=== PATIENT | male | born 1955 | race Caucasian/White ===

== ENCOUNTER 2023-10-13 05:50 | Day surgery (SDC) | payer OTHER ==
[2023-10-13 05:57] VITALS: BMI 28.1
[2023-10-13 07:18] LABS: BASO % 1.6 % (0-2.0); EOS % 5.9 % (0-4.5); HEMATOCRIT 34.5 % (35.4-49); HEMOGLOBIN 11.8 GM/dL (11.7-16.9); LYMPH % 16.4 % (8-40); MCH 32.3 pg (25.7-33.7); MCHC 34.2 g/dl (32.0-35.9); MEAN CELL VOLUME 94.6 fl (80-96); MEAN PLT VOLUME 9.6 fl (7.5-11.1); MONO % 9.8 % (3.8-10.2); NEUT % 66.3 % (42.8-82.8); PLATELET COUNT 266 10^3/uL (134-434); RBC 3.64 M/mm3 (4.00-5.60); RDW 15.8 % (11.9-15.9); WHITE BLOOD COUNT 4.9 K/mm3 (4.0-10.0)
[2023-10-13 07:48] LABS: CHLORIDE 107 mmol/L (98-107); SODIUM 135 mmol/L (136-145)
[2023-10-13 07:50] LABS: CALCIUM 8.5 mg/dL (8.5-10.1)
[2023-10-13 07:51] LABS: ALBUMIN 2.6 g/dl (3.4-5.0); BLOOD UREA NITROGEN 18.7 mg/dL (7-18); CO2 23 mmol/L (21-32); GLUCOSE,RANDOM 91 mg/dL (74-106); MAGNESIUM 2.1 mg/dL (1.8-2.4)
[2023-10-13 07:54] LABS: CREATININE 1.4 mg/dL (0.55-1.3); SGOT/AST 115 U/L (15-37); SGPT/ALT 50 U/L (13-61)
[2023-10-13 07:55] LABS: BILIRUBIN,TOTAL 2.8 mg/dL (0.2-1); TOT PROT 6.2 g/dl (6.4-8.2)
[2023-10-13 07:56] LABS: ALK PHOS 338 U/L (45-117)
[2023-10-13 07:59] LABS: ANION GAP 5 mmol/L (4-13); POTASSIUM 6.8 mmol/L (3.5-5.1)
[2023-10-13 09:05] LABS: INR 1.43 (0.83-1.09)
[2023-10-13 09:13] LABS: POTASSIUM 4.7 mmol/L (3.5-5.1)
[2023-10-13 09:15] LABS: CALCIUM 8.8 mg/dL (8.5-10.1)
[2023-10-13 09:16] LABS: ALBUMIN 2.6 g/dl (3.4-5.0); BLOOD UREA NITROGEN 17.6 mg/dL (7-18)
[2023-10-13 09:19] LABS: CREATININE 1.3 mg/dL (0.55-1.3)
[2023-10-13 09:20] LABS: BILIRUBIN,TOTAL 2.6 mg/dL (0.2-1)
[2023-10-13] MEDS: ALBUMIN HUMAN 25% 12.5 GM/50 ML VIAL IV SCH (13:10)
[2023-10-13 17:09] LABS: BF WBC & OTHER NUCLEATED CELLS 102 /mm3
[2023-10-13 17:40] LABS: BODY FLUID MACROPHAGES 2 %; BODY FLUID MESOTHELIAL 3 %; BODY FLUID MONOCYTE 40 %
[2023-10-13] MEDS: SACUBITRIL/VALSARTAN 49 MG-51 MG TABLET PO SCH (22:22)
[2023-10-14 09:21] LABS: HEMATOCRIT 31.8 % (35.4-49); HEMOGLOBIN 10.9 GM/dL (11.7-16.9); MCH 32.4 pg (25.7-33.7); MCHC 34.1 g/dl (32.0-35.9); MEAN PLT VOLUME 8.3 fl (7.5-11.1); PLATELET COUNT 173 10^3/uL (134-434); RBC 3.35 M/mm3 (4.00-5.60); WHITE BLOOD COUNT 3.7 K/mm3 (4.0-10.0)
[2023-10-14] MEDS: FAMOTIDINE 20 MG TABLET PO SCH (09:25)
[2023-10-14] MEDS: EZETIMIBE 10 MG TABLET (FP) PO SCH (09:25)
[2023-10-14] MEDS: metroNIDAZOLE 250 MG TABLET PO SCH (09:25)
[2023-10-14] MEDS: PANTOPRAZOLE 40 MG TABLET PO SCH (09:25)
[2023-10-14] MEDS: CARVEDILOL 3.125 MG TABLET (FP) PO SCH (09:37)
[2023-10-14 09:46] LABS: POTASSIUM 4.9 mmol/L (3.5-5.1)
[2023-10-14 09:57] LABS: CALCIUM 8.4 mg/dL (8.5-10.1)
[2023-10-14 09:59] LABS: ALBUMIN 2.7 g/dl (3.4-5.0)
[2023-10-14] MEDS ORDERED: SPIRONOLACTONE 25 MG TABLET PO SCH (10:00)
[2023-10-14 10:01] LABS: BILIRUBIN,TOTAL 2.3 mg/dL (0.2-1); TOT PROT 5.4 g/dl (6.4-8.2)
[2023-10-14 10:03] LABS: CREATININE 1.1 mg/dL (0.55-1.3)
[2023-10-14 15:28] VITALS: RESP 18
[2023-10-14] MEDS ORDERED: SACUBITRIL/VALSARTAN 49 MG-51 MG TABLET PO SCH (22:00)
[2023-10-15] MEDS ORDERED: EZETIMIBE 10 MG TABLET (FP) PO SCH (08:46)
[2023-10-15 08:59] VITALS: PULSE 76; TEMP 98.6
[2023-10-15 10:32] LABS: HEMATOCRIT 34.4 % (35.4-49); HEMOGLOBIN 11.9 GM/dL (11.7-16.9); MCH 32.6 pg (25.7-33.7); MCHC 34.7 g/dl (32.0-35.9); MEAN CELL VOLUME 93.9 fl (80-96); MEAN PLT VOLUME 8.5 fl (7.5-11.1); PLATELET COUNT 223 10^3/uL (134-434); RBC 3.66 M/mm3 (4.00-5.60); RDW 15.6 % (11.9-15.9); WHITE BLOOD COUNT 5.3 K/mm3 (4.0-10.0)
[2023-10-15 10:50] LABS: POTASSIUM 4.7 mmol/L (3.5-5.1)
[2023-10-15] MEDS ORDERED: SPIRONOLACTONE 25 MG TABLET PO SCH ×2 (11:00)
[2023-10-15 11:04] LABS: CALCIUM 8.4 mg/dL (8.5-10.1)
[2023-10-15 11:05] LABS: ALBUMIN 2.9 g/dl (3.4-5.0); BLOOD UREA NITROGEN 17.8 mg/dL (7-18)
[2023-10-15] MEDS: SPIRONOLACTONE 25 MG TABLET PO SCH (11:05)
[2023-10-15 11:06] VITALS: BP 90/68
[2023-10-15 11:08] LABS: CREATININE 1.1 mg/dL (0.55-1.3)
[2023-10-15 11:10] LABS: BILIRUBIN,TOTAL 1.5 mg/dL (0.2-1)
[2023-10-15 17:07] LABS: BODY FLUID ALBUMIN 0.7 g/dL (Not Estab.)
[2023-10-19 05:11] LABS: ALPHA 2 MACROGLOBULINS,QN 109 mg/dL (110-276); ALT(SGPT)P5P 35 IU/L (0-55); APOLIPOPROTEIN A-1. 63 mg/dL (101-178); CHOLESTEROL TOTAL 128 mg/dL (100-199); GLUCOSE SERUM 101 mg/dL (70-99)
== END 2023-10-15 11:57 | disposition home or self-care (01) ==
LOC: JER 05:50 → JERBED 10:01 → UNDOADMIN 10:01 → J5S 10:56 → JERBED 10:56 → JASUSAT 10-14 09:43 → J5S 10-14 09:52 → JASUSAT 10-15 11:57
PROC: 0W9G3ZX Drainage of Peritoneal Cavity, Percutaneous Approach, Diagnostic (ICD-10-PCS; principal; 2023-10-14)
DX: R18.8 Other ascites (principal)
CPT/HCPCS: 36415; 49083; 71045-TC-FY; 76942-TC; 80053; 82042; 82150; 82465; 82945; 83615; 83735; 83986; 84157; 84478; 85025; 85027; 85610; 86850; 86900; 86901; 87070; 87075; 87205; 88108; 88305-TC; 93005; 93010; 99285-25; P9047

== ENCOUNTER 2023-11-04 05:48 | Observation (INO) | payer OTHER ==
[2023-11-04 07:36] LABS: INR 1.32 (0.83-1.09); PROTHROMBIN TIME (PATIENT) 15.1 SEC (9.7-13.0)
[2023-11-04 07:37] LABS: BASO % 1.5 % (0-2.0); EOS % 5.1 % (0-4.5); HEMATOCRIT 28.9 % (35.4-49); HEMOGLOBIN 9.8 GM/dL (11.7-16.9); LYMPH % 16.5 % (8-40); MCH 32.6 pg (25.7-33.7); MEAN CELL VOLUME 95.7 fl (80-96); MEAN PLT VOLUME 8.2 fl (7.5-11.1); MONO % 10.3 % (3.8-10.2); NEUT % 66.6 % (42.8-82.8); PLATELET COUNT 231 10^3/uL (134-434); RBC 3.02 M/mm3 (4.00-5.60); RDW 15.5 % (11.9-15.9); WHITE BLOOD COUNT 4.8 K/mm3 (4.0-10.0)
[2023-11-04 07:39] LABS: ACTIVATED PTT 29.4 SECONDS (25.2-36.5)
[2023-11-04 07:58] LABS: POTASSIUM 4.8 mmol/L (3.5-5.1)
[2023-11-04 08:00] LABS: ALBUMIN 2.4 g/dl (3.4-5.0); BLOOD UREA NITROGEN 16.8 mg/dL (7-18); CALCIUM 8.2 mg/dL (8.5-10.1); MAGNESIUM 2.2 mg/dL (1.8-2.4)
[2023-11-04 08:04] LABS: CREATININE 1.4 mg/dL (0.55-1.3)
[2023-11-04 08:05] LABS: BILIRUBIN,TOTAL 2.2 mg/dL (0.2-1); TOT PROT 5.9 g/dl (6.4-8.2)
[2023-11-04] MEDS: ALBUMIN HUMAN 25% 100 ML VIAL IV ONE (15:41)
[2023-11-04 16:02] LABS: BF WBC & OTHER NUCLEATED CELLS 115 /mm3
[2023-11-04 16:03] VITALS: BMI 23.7
[2023-11-04 17:34] LABS: PH,URINE 5.5 (5.0-8.0); URINE APPEARANCE CLEAR; URINE BILIRUBIN NEGATIVE (NEGATIVE); URINE COLOR YELLOW; URINE GLUCOSE (UA) NEGATIVE (NEGATIVE); URINE KETONE TRACE (NEGATIVE); URINE LEUK ESTERASE NEGATIVE (NEGATIVE); URINE NITRITE NEGATIVE (NEGATIVE); URINE PROTEIN NEGATIVE (NEGATIVE)
[2023-11-04 18:03] LABS: BODY FLUID MACROPHAGES 50 %; BODY FLUID MESOTHELIAL 3 %; BODY FLUID MONOCYTE 3 %; BODYL FLD EOSINOPHIL 5 %
[2023-11-04] MEDS: MIDODRINE HCL 5 MG TABLET PO SCH (18:49)
[2023-11-05 08:53] LABS: BASO % 1.4 % (0-2.0); EOS % 3.3 % (0-4.5); HEMOGLOBIN 9.4 GM/dL (11.7-16.9); LYMPH % 19.3 % (8-40); MCH 31.8 pg (25.7-33.7); MCHC 33.4 g/dl (32.0-35.9); MEAN CELL VOLUME 95.1 fl (80-96); MEAN PLT VOLUME 8.3 fl (7.5-11.1); MONO % 12.1 % (3.8-10.2); NEUT % 63.9 % (42.8-82.8); PLATELET COUNT 202 10^3/uL (134-434); RBC 2.95 M/mm3 (4.00-5.60)
[2023-11-05 09:12] LABS: POTASSIUM 5.1 mmol/L (3.5-5.1)
[2023-11-05 09:21] LABS: ALBUMIN 2.3 g/dl (3.4-5.0); BLOOD UREA NITROGEN 18.1 mg/dL (7-18)
[2023-11-05 09:22] LABS: MAGNESIUM 2.1 mg/dL (1.8-2.4)
[2023-11-05 09:24] LABS: CREATININE 1.1 mg/dL (0.55-1.3); PHOSPHOROUS 2.9 mg/dL (2.5-4.9)
[2023-11-05 09:26] LABS: TOT PROT 5.3 g/dl (6.4-8.2)
[2023-11-05] MEDS ORDERED: SPIRONOLACTONE 25 MG TABLET PO SCH (10:00)
[2023-11-05] MEDS: EZETIMIBE 10 MG TABLET (FP) PO SCH (10:16)
[2023-11-05] MEDS: SPIRONOLACTONE 25 MG TABLET PO SCH (10:16)
[2023-11-05] MEDS: PANTOPRAZOLE 40 MG TABLET PO SCH (10:16)
[2023-11-05] MEDS: FAMOTIDINE 20 MG TABLET PO SCH (10:16)
[2023-11-05 10:29] VITALS: BP 98/65; PULSE 80; RESP 17; TEMP 97.9
[2023-11-05 13:07] LABS: BODY FLUID ALBUMIN 0.5 g/dL (Not Estab.)
== END 2023-11-05 12:58 | disposition home or self-care (01) ==
LOC: JER 05:48 → INTOOBSV 08:08 → UNDOADMOB 08:08 → JERBED 08:08 → J7W 15:06 → JERBED 15:06 → J7W 15:08 → JERBED 11-05 09:29
PROVIDERS: ATTEND Nurse Practitioner
PROC: 0W9G3ZZ Drainage of Peritoneal Cavity, Percutaneous Approach (ICD-10-PCS; 2023-11-04)
PROC: 3E033GC Introduction of Other Therapeutic Substance into Peripheral Vein, Percutaneous Approach (ICD-10-PCS; principal; 2023-11-05)
DX: R18.8 Other ascites (principal); I11.0 Hypertensive heart disease with heart failure; I85.00 Esophageal varices without bleeding; K75.81 Nonalcoholic steatohepatitis (NASH); E78.5 Hyperlipidemia, unspecified; K21.9 Gastro-esophageal reflux disease without esophagitis; Z95.5 Presence of coronary angioplasty implant and graft; R14.0 Abdominal distension (gaseous); K74.60 Unspecified cirrhosis of liver; R94.5 Abnormal results of liver function studies; D64.9 Anemia, unspecified
CPT/HCPCS: 36415; 76775-TC; 76942-TC; 80053; 81003; 82042; 82150; 82465; 82945; 83615; 83690; 83735; 83986; 84100; 84157; 84478; 85025; 85610; 85730; 86850; 86900; 86901; 87070; 87075; 87102; 87116; 87205; 87206; 87210; 88108; 88305-TC; 93005; 93010; 99285-25; G0378

== ENCOUNTER 2023-11-22 12:30 | Inpatient (IN) | payer OTHER ==
[2023-11-22 14:29] LABS: HEMATOCRIT 38.4 % (35.4-49); HEMOGLOBIN 12.6 GM/dL (11.7-16.9); MCH 31.3 pg (25.7-33.7); MCHC 32.7 g/dl (32.0-35.9); MEAN CELL VOLUME 95.7 fl (80-96); MEAN PLT VOLUME 8.2 fl (7.5-11.1); PLATELET COUNT 245 10^3/uL (134-434); RBC 4.01 M/mm3 (4.00-5.60); RDW 16.9 % (11.9-15.9); WHITE BLOOD COUNT 16.2 K/mm3 (4.0-10.0)
[2023-11-22 14:36] LABS: INR 1.44 (0.83-1.09); PROTHROMBIN TIME (PATIENT) 16.1 SEC (9.7-13.0)
[2023-11-22 14:39] LABS: ACTIVATED PTT 30.8 SECONDS (25.2-36.5)
[2023-11-22 14:51] LABS: ANISOCYTOSIS 0; MACROCYTOSIS 0
[2023-11-22 15:10] LABS: POTASSIUM 5.1 mmol/L (3.5-5.1)
[2023-11-22 15:15] LABS: ALBUMIN 2.6 g/dl (3.4-5.0); BLOOD UREA NITROGEN 23.9 mg/dL (7-18); CALCIUM 8.5 mg/dL (8.5-10.1)
[2023-11-22 15:18] LABS: CREATININE 2.2 mg/dL (0.55-1.3)
[2023-11-22 15:20] LABS: TOT PROT 6.8 g/dl (6.4-8.2)
[2023-11-22] MEDS ORDERED: FENTANYL CITRATE/PF 50 MCG/ML VIAL ONE (16:15)
[2023-11-22] MEDS: ALBUMIN HUMAN 25% 12.5 GM/50 ML VIAL IV SCH (16:16)
[2023-11-22 16:35] VITALS: RESP 18
[2023-11-22] MEDS ORDERED: MIDODRINE HCL 5 MG TABLET ONE (19:42)
[2023-11-22] MEDS: MIDODRINE HCL 5 MG TABLET PO SCH (19:42)
[2023-11-22 20:44] LABS: BF WBC & OTHER NUCLEATED CELLS 5494 /mm3; BODY FLUID MESOTHELIAL 4 %; BODY FLUID MONOCYTE 22 %; BODYL FLD EOSINOPHIL 3 %
[2023-11-23] MEDS: HEPARIN NA (PORCINE) 5,000 UNITS/ML 1ML VIAL SQ SCH (01:41)
[2023-11-23] MEDS: ASPIRIN COATED 81 MG TABLET.EC PO SCH (09:48)
[2023-11-23] MEDS: PANTOPRAZOLE 40 MG TABLET PO SCH (09:48)
[2023-11-23] MEDS: EZETIMIBE 10 MG TABLET (FP) PO SCH (09:54)
[2023-11-23 10:17] LABS: BASO % 0.3 % (0-2.0); EOS % 0.2 % (0-4.5); HEMATOCRIT 31.2 % (35.4-49); HEMOGLOBIN 10.5 GM/dL (11.7-16.9); LYMPH % 8.3 % (8-40); MCH 32.1 pg (25.7-33.7); MCHC 33.6 g/dl (32.0-35.9); MEAN CELL VOLUME 95.6 fl (80-96); MEAN PLT VOLUME 8.1 fl (7.5-11.1); MONO % 8.8 % (3.8-10.2); NEUT % 82.4 % (42.8-82.8); PLATELET COUNT 165 10^3/uL (134-434); RBC 3.27 M/mm3 (4.00-5.60); RDW 16.3 % (11.9-15.9); WHITE BLOOD COUNT 10.1 K/mm3 (4.0-10.0)
[2023-11-23 10:59] LABS: POTASSIUM 5.1 mmol/L (3.5-5.1)
[2023-11-23 11:12] LABS: CALCIUM 8.4 mg/dL (8.5-10.1)
[2023-11-23 11:14] LABS: CREATININE 1.5 mg/dL (0.55-1.3)
[2023-11-23] MEDS: CEFTRIAXONE 2 GM in DEXTROSE 5%-WATER 100 ML IVPB SCH (12:11)
[2023-11-23 14:06] VITALS: BMI 23.0
[2023-11-23 14:17] VITALS: BP 104/74; PULSE 106; TEMP 98.6
[2023-11-23] MEDS: ALBUMIN HUMAN 25% 12.5 GM/50 ML VIAL IV ONE (14:26)
[2023-11-24 14:09] LABS: BODY FLUID ALBUMIN 0.7 g/dL (Not Estab.)
== END 2023-11-23 16:48 | disposition left against medical advice (07) | DRG 433 ==
LOC: JER 12:30 → JERBED 16:58 → J7W 22:37
PROVIDERS: ADMIT Internal Medicine; ATTEND Nurse Practitioner Family
PROC: 0W9G3ZX Drainage of Peritoneal Cavity, Percutaneous Approach, Diagnostic (ICD-10-PCS; principal; 2023-11-22)
DX: K74.60 Unspecified cirrhosis of liver (principal); I13.0 Hypertensive heart and chronic kidney disease with heart failure and stage 1 through stage 4 chronic kidney disease, or unspecified chronic kidney disease; R18.8 Other ascites; K75.81 Nonalcoholic steatohepatitis (NASH); E78.5 Hyperlipidemia, unspecified; I25.10 Atherosclerotic heart disease of native coronary artery without angina pectoris; D64.9 Anemia, unspecified; Z95.5 Presence of coronary angioplasty implant and graft
CPT/HCPCS: 36415; 71045-TC-FY; 76942-TC; 80048; 80053; 82042; 82150; 82465; 82945; 83615; 83986; 84157; 84478; 85025; 85610; 85730; 86850; 86900; 86901; 87070; 87075; 87102; 87116; 87205; 87206; 87210; 88108; 88305-TC; 93005; 93010; 99285-25; J1644; P9047

== ENCOUNTER 2023-12-15 03:53 | Observation (INO) | payer OTHER ==
[2023-12-15 04:01] VITALS: BMI 23.5
[2023-12-15 06:00] LABS: BASO % 1.2 % (0-2.0); EOS % 5.8 % (0-4.5); HEMOGLOBIN 9.3 GM/dL (11.7-16.9); LYMPH % 16.3 % (8-40); MCH 31.1 pg (25.7-33.7); MCHC 33.1 g/dl (32.0-35.9); MEAN CELL VOLUME 94.2 fl (80-96); MEAN PLT VOLUME 7.8 fl (7.5-11.1); MONO % 13.9 % (3.8-10.2); NEUT % 62.8 % (42.8-82.8); PLATELET COUNT 231 10^3/uL (134-434); RBC 2.98 M/mm3 (4.00-5.60); RDW 15.9 % (11.9-15.9); WHITE BLOOD COUNT 5.4 K/mm3 (4.0-10.0)
[2023-12-15 06:21] LABS: POTASSIUM 5.8 mmol/L (3.5-5.1)
[2023-12-15 06:24] LABS: BLOOD UREA NITROGEN 21.1 mg/dL (7-18); CALCIUM 8.1 mg/dL (8.5-10.1)
[2023-12-15 06:27] LABS: CREATININE 1.4 mg/dL (0.55-1.3)
[2023-12-15 06:29] LABS: BILIRUBIN,TOTAL 2.2 mg/dL (0.2-1); TOT PROT 5.7 g/dl (6.4-8.2)
[2023-12-15] MEDS ORDERED: SODIUM ZIRCONIUM CYCLOSILICATE (LOKELMA) 10 GM PACKET ONE (06:44)
[2023-12-15] MEDS: SODIUM ZIRCONIUM CYCLOSILICATE (LOKELMA) 5 GM PACKET PO ONE (06:48)
[2023-12-15 09:22] LABS: BILIRUBIN,DIRECT 1.4 mg/dL (0.0-0.2)
[2023-12-15 09:56] LABS: INR 1.44 (0.83-1.09); PROTHROMBIN TIME (PATIENT) 16.1 SEC (9.7-13.0)
[2023-12-15 09:58] LABS: ACTIVATED PTT 30.4 SECONDS (25.2-36.5)
[2023-12-15] MEDS ORDERED: ASPIRIN COATED 81 MG TABLET.EC PO SCH (10:00)
[2023-12-15] MEDS ORDERED: MIDODRINE HCL 5 MG TABLET ONE (10:01)
[2023-12-15] MEDS ORDERED: FAMOTIDINE 20 MG TABLET ONE (10:01)
[2023-12-15] MEDS ORDERED: PANTOPRAZOLE 40 MG TABLET PO ONE (10:01)
[2023-12-15] MEDS: PANTOPRAZOLE 40 MG TABLET PO SCH (10:12)
[2023-12-15] MEDS: MIDODRINE HCL 5 MG TABLET PO SCH (10:12)
[2023-12-15] MEDS: FAMOTIDINE 20 MG TABLET PO SCH (10:12)
[2023-12-15] MEDS: ALBUMIN HUMAN 25% 12.5 GM/50 ML VIAL IV SCH (10:26)
[2023-12-15] MEDS: EZETIMIBE 10 MG TABLET (FP) PO SCH (16:42)
[2023-12-16] MEDS ORDERED: HEPARIN NA (PORCINE) 5,000 UNITS/ML 1ML VIAL SQ SCH (10:00)
[2023-12-16 10:40] LABS: BASO % 1.1 % (0-2.0); EOS % 3.3 % (0-4.5); HEMATOCRIT 30.5 % (35.4-49); HEMOGLOBIN 10.3 GM/dL (11.7-16.9); MCH 31.6 pg (25.7-33.7); MCHC 33.7 g/dl (32.0-35.9); MEAN CELL VOLUME 93.8 fl (80-96); MEAN PLT VOLUME 7.8 fl (7.5-11.1); NEUT % 68.6 % (42.8-82.8); PLATELET COUNT 255 10^3/uL (134-434); RBC 3.25 M/mm3 (4.00-5.60); RDW 15.5 % (11.9-15.9); WHITE BLOOD COUNT 5.8 K/mm3 (4.0-10.0)
[2023-12-16 11:02] VITALS: BP 103/75; PULSE 99; RESP 19; TEMP 98.6
[2023-12-16 11:38] LABS: POTASSIUM 4.8 mmol/L (3.5-5.1)
[2023-12-16 11:40] LABS: CALCIUM 7.8 mg/dL (8.5-10.1)
[2023-12-16 11:41] LABS: BLOOD UREA NITROGEN 21.2 mg/dL (7-18); MAGNESIUM 1.9 mg/dL (1.8-2.4)
[2023-12-16 11:42] LABS: ALBUMIN 2.5 g/dl (3.4-5.0)
[2023-12-16 11:44] LABS: CREATININE 1.5 mg/dL (0.55-1.3); PHOSPHOROUS 2.6 mg/dL (2.5-4.9)
[2023-12-16 11:45] LABS: BILIRUBIN,TOTAL 2.5 mg/dL (0.2-1)
[2023-12-16] MEDS: LIPASE/PROTEASE/AMYLASE 24,000 UNIT CAPSULE PO SCH (12:26)
== END 2023-12-16 12:51 | disposition home or self-care (01) ==
LOC: JER 03:53 → JERBED 06:33 → J5S 16:15
PROVIDERS: ADMIT Internal Medicine; ATTEND Internal Medicine
PROC: 3E033GC Introduction of Other Therapeutic Substance into Peripheral Vein, Percutaneous Approach (ICD-10-PCS; principal; 2023-12-15)
DX: I11.9 Hypertensive heart disease without heart failure (principal); K75.81 Nonalcoholic steatohepatitis (NASH); K74.69 Other cirrhosis of liver; I85.00 Esophageal varices without bleeding; R18.8 Other ascites; K74.60 Unspecified cirrhosis of liver; Z95.5 Presence of coronary angioplasty implant and graft; Z90.49 Acquired absence of other specified parts of digestive tract; Z87.738 Personal history of other specified (corrected) congenital malformations of digestive system; E87.5 Hyperkalemia
CPT/HCPCS: 36415; 76942-TC; 80053; 82248; 83735; 84100; 85025; 85610; 85730; 86850; 86900; 86901; 93005; 93010; 93306-TC; 96374; 96376; 99285-25; G0378; P9047

== ENCOUNTER 2024-01-28 05:57 | Observation (INO) | payer OTHER ==
[2024-01-28 07:21] LABS: BASO % 0.8 % (0-2.0); HEMATOCRIT 31.1 % (35.4-49); HEMOGLOBIN 10.5 GM/dL (11.7-16.9); LYMPH % 15.5 % (8-40); MCH 31.4 pg (25.7-33.7); MCHC 33.8 g/dl (32.0-35.9); MEAN CELL VOLUME 92.9 fl (80-96); MEAN PLT VOLUME 8.4 fl (7.5-11.1); MONO % 13.1 % (3.8-10.2); NEUT % 60.6 % (42.8-82.8); PLATELET COUNT 222 10^3/uL (134-434); RBC 3.35 M/mm3 (4.00-5.60); RDW 17.7 % (11.9-15.9); WHITE BLOOD COUNT 6.8 K/mm3 (4.0-10.0)
[2024-01-28 08:03] LABS: POTASSIUM 3.7 mmol/L (3.5-5.1)
[2024-01-28 08:06] LABS: ALBUMIN 2.1 g/dl (3.4-5.0); BLOOD UREA NITROGEN 16.6 mg/dL (7-18); INR 1.35 (0.83-1.09); MAGNESIUM 2.1 mg/dL (1.8-2.4); PROTHROMBIN TIME (PATIENT) 15.1 SEC (9.7-13.0)
[2024-01-28 08:09] LABS: ACTIVATED PTT 31.7 SECONDS (25.2-36.5); BILIRUBIN,TOTAL 2.2 mg/dL (0.2-1); CREATININE 1.2 mg/dL (0.55-1.3); TOT PROT 6.2 g/dl (6.4-8.2)
[2024-01-28 08:13] LABS: N-TERMINAL BNP 483.1 pg/ml (5-125)
[2024-01-28 08:38] LABS: PH,URINE 5.5 (5.0-8.0); URINE APPEARANCE CLEAR; URINE BILIRUBIN NEGATIVE (NEGATIVE); URINE COLOR DK YELLOW; URINE GLUCOSE (UA) NEGATIVE (NEGATIVE); URINE KETONE NEGATIVE (NEGATIVE); URINE LEUK ESTERASE NEGATIVE (NEGATIVE); URINE NITRITE NEGATIVE (NEGATIVE); URINE PROTEIN NEGATIVE (NEGATIVE)
[2024-01-28 11:58] VITALS: BMI 22.3
[2024-01-28] MEDS: SPIRONOLACTONE 25 MG TABLET PO SCH (12:13)
[2024-01-28] MEDS: SULFAMETHOXAZOLE/TRIMETHOPRIM 800MG/160MG D.S. TABLET PO SCH (12:13)
[2024-01-28] MEDS: ALBUMIN HUMAN 25% 12.5 GM/50 ML VIAL IV SCH (13:01)
[2024-01-28] MEDS: FUROSEMIDE 20 MG TABLET (FP) PO SCH (16:33)
[2024-01-28] MEDS: MIDODRINE HCL 5 MG TABLET PO SCH (18:57)
[2024-01-28] MEDS: EZETIMIBE 10 MG TABLET (FP) PO SCH (21:30)
[2024-01-28] MEDS: SACUBITRIL/VALSARTAN 24 MG-26 MG TABLET PO SCH (21:30)
[2024-01-29] MEDS: PANTOPRAZOLE 40 MG TABLET PO SCH (09:47)
[2024-01-29] MEDS: FAMOTIDINE 20 MG TABLET PO SCH (09:47)
[2024-01-29] MEDS: HEPARIN NA (PORCINE) 5,000 UNITS/ML 1ML VIAL SQ SCH (13:40)
[2024-01-30 07:20] VITALS: RESP 18
[2024-01-30 10:32] VITALS: BP 108/70; PULSE 83; TEMP 97.7
== END 2024-01-30 13:49 | disposition home or self-care (01) ==
LOC: JER 05:57 → JERBED 07:28 → J7W 11:22 → UNDODISOB 17:12
PROVIDERS: ADMIT Student in an Organized Health Care Education/Training Program; ATTEND Internal Medicine
PROC: 0W9G3ZX Drainage of Peritoneal Cavity, Percutaneous Approach, Diagnostic (ICD-10-PCS; principal; 2024-01-28)
PROC: 3E0337Z Introduction of Electrolytic and Water Balance Substance into Peripheral Vein, Percutaneous Approach (ICD-10-PCS; 2024-01-28)
DX: I50.20 Unspecified systolic (congestive) heart failure (principal); R18.8 Other ascites; I11.0 Hypertensive heart disease with heart failure; I25.10 Atherosclerotic heart disease of native coronary artery without angina pectoris; E78.5 Hyperlipidemia, unspecified; K74.60 Unspecified cirrhosis of liver; I85.00 Esophageal varices without bleeding; K76.0 Fatty (change of) liver, not elsewhere classified; I25.2 Old myocardial infarction; Z87.891 Personal history of nicotine dependence; Z95.5 Presence of coronary angioplasty implant and graft
CPT/HCPCS: 36415; 71045-TC-FY; 76942-TC; 80053; 81003; 83735; 83880; 85025; 85610; 85730; 87086; 93005; 93010; 96374; 99285-25; G0378; P9047

== ENCOUNTER 2024-02-27 03:02 | Inpatient (IN) | payer OTHER ==
[2024-02-27 04:40] LABS: BASO % 1.2 % (0-2.0); HEMATOCRIT 31.4 % (35.4-49); HEMOGLOBIN 10.6 GM/dL (11.7-16.9); LYMPH % 14.5 % (8-40); MCH 31.4 pg (25.7-33.7); MCHC 33.7 g/dl (32.0-35.9); MEAN CELL VOLUME 93.1 fl (80-96); MEAN PLT VOLUME 7.6 fl (7.5-11.1); MONO % 10.9 % (3.8-10.2); NEUT % 58.4 % (42.8-82.8); PLATELET COUNT 229 10^3/uL (134-434); RBC 3.37 M/mm3 (4.00-5.60); RDW 17.3 % (11.9-15.9); WHITE BLOOD COUNT 5.7 K/mm3 (4.0-10.0)
[2024-02-27 05:01] LABS: POTASSIUM 4.7 mmol/L (3.5-5.1)
[2024-02-27 05:03] LABS: BLOOD UREA NITROGEN 23.2 mg/dL (7-18); CALCIUM 8.7 mg/dL (8.5-10.1)
[2024-02-27 05:04] LABS: ALBUMIN 2.4 g/dl (3.4-5.0)
[2024-02-27 05:06] LABS: CREATININE 1.7 mg/dL (0.55-1.3)
[2024-02-27 05:08] LABS: BILIRUBIN,TOTAL 2.3 mg/dL (0.2-1); TOT PROT 6.6 g/dl (6.4-8.2)
[2024-02-27 08:33] LABS: URINE APPEARANCE CLEAR; URINE BILIRUBIN NEGATIVE (NEGATIVE); URINE COLOR DK YELLOW; URINE GLUCOSE (UA) NEGATIVE (NEGATIVE); URINE KETONE NEGATIVE (NEGATIVE); URINE LEUK ESTERASE NEGATIVE (NEGATIVE); URINE NITRITE NEGATIVE (NEGATIVE); URINE PROTEIN NEGATIVE (NEGATIVE)
[2024-02-27] MEDS ORDERED: FUROSEMIDE 40 MG TABLET (FP) ONE (13:18)
[2024-02-27] MEDS ORDERED: MIDODRINE HCL 5 MG TABLET ONE (13:18)
[2024-02-27] MEDS: MIDODRINE HCL 5 MG TABLET PO SCH (13:27)
[2024-02-27] MEDS: FUROSEMIDE 40 MG TABLET (FP) PO SCH (13:27)
[2024-02-27] MEDS ORDERED: SPIRONOLACTONE 25 MG TABLET ONE (13:54)
[2024-02-27] MEDS: SPIRONOLACTONE 25 MG TABLET PO SCH (13:58)
[2024-02-27] MEDS: ALBUMIN HUMAN 25% 100 ML VIAL IV SCH (15:04)
[2024-02-27] MEDS: ALBUMIN HUMAN 25% 12.5 GM/50 ML VIAL IV SCH (15:09)
[2024-02-27 15:57] VITALS: BMI 23.4
[2024-02-27] MEDS: HEPARIN NA (PORCINE) 5,000 UNITS/ML 1ML VIAL SQ SCH (21:26)
[2024-02-27] MEDS: MIRTAZAPINE 15 MG TABLET (FP) PO SCH (21:26)
[2024-02-27] MEDS ORDERED: PATIENT'S OWN MEDICATION (NON-FORMULARY) (Midodrine Hcl [Midodrine Hcl] 10 MG Tablet) PO SCH (22:00)
[2024-02-28] MEDS: FAMOTIDINE 20 MG TABLET PO SCH (09:11)
[2024-02-28] MEDS ORDERED: ALBUMIN HUMAN 25% 100 ML VIAL IV SCH (10:45)
[2024-02-28 11:00] VITALS: RESP 18
[2024-02-28 11:39] LABS: BF WBC & OTHER NUCLEATED CELLS 364 /mm3
[2024-02-28] MEDS: ALBUMIN HUMAN 25% 12.5 GM/50 ML VIAL IV SCH ×2 (12:25→16:50)
[2024-02-28] MEDS: MIDODRINE HCL 5 MG TABLET PO SCH (13:06)
[2024-02-28] MEDS: HEPARIN NA (PORCINE) 5,000 UNITS/ML 1ML VIAL SQ SCH (13:06)
[2024-02-28 13:07] LABS: BODY FLUID MESOTHELIAL 16 %; BODY FLUID MONOCYTE 3 %
[2024-02-28 13:09] LABS: BODY FLUID MACROPHAGES 59 %
[2024-02-28 13:14] LABS: BASO % 1.1 % (0-2.0); HEMOGLOBIN 10.8 GM/dL (11.7-16.9); LYMPH % 14.3 % (8-40); MCH 32.6 pg (25.7-33.7); MCHC 34.9 g/dl (32.0-35.9); MEAN CELL VOLUME 93.4 fl (80-96); MEAN PLT VOLUME 7.7 fl (7.5-11.1); MONO % 10.6 % (3.8-10.2); PLATELET COUNT 217 10^3/uL (134-434); RBC 3.32 M/mm3 (4.00-5.60); RDW 17.6 % (11.9-15.9); WHITE BLOOD COUNT 5.3 K/mm3 (4.0-10.0)
[2024-02-28 13:16] LABS: HEMATOCRIT 31.3 % (35.4-49); HEMOGLOBIN 10.6 GM/dL (11.7-16.9); MCH 31.4 pg (25.7-33.7); MCHC 33.8 g/dl (32.0-35.9); MEAN CELL VOLUME 92.9 fl (80-96); MEAN PLT VOLUME 8.1 fl (7.5-11.1); PLATELET COUNT 223 10^3/uL (134-434); RBC 3.36 M/mm3 (4.00-5.60); RDW 17.1 % (11.9-15.9); WHITE BLOOD COUNT 5.5 K/mm3 (4.0-10.0)
[2024-02-28 13:47] LABS: POTASSIUM 4.3 mmol/L (3.5-5.1)
[2024-02-28 13:49] LABS: ALBUMIN 2.8 g/dl (3.4-5.0); BLOOD UREA NITROGEN 23.7 mg/dL (7-18)
[2024-02-28 13:52] LABS: BILIRUBIN,DIRECT 1.4 mg/dL (0.0-0.2); CREATININE 1.5 mg/dL (0.55-1.3)
[2024-02-28 13:54] LABS: BILIRUBIN,TOTAL 2.6 mg/dL (0.2-1); TOT PROT 6.9 g/dl (6.4-8.2)
[2024-02-28 19:35] LABS: POTASSIUM 4.3 mmol/L (3.5-5.1)
[2024-02-28 19:37] LABS: ALBUMIN 2.8 g/dl (3.4-5.0); CALCIUM 8.7 mg/dL (8.5-10.1)
[2024-02-28 19:38] LABS: BLOOD UREA NITROGEN 23.9 mg/dL (7-18)
[2024-02-28 19:40] LABS: CREATININE 1.5 mg/dL (0.55-1.3)
[2024-02-28 19:42] LABS: BILIRUBIN,TOTAL 2.6 mg/dL (0.2-1); TOT PROT 6.4 g/dl (6.4-8.2)
[2024-02-28 22:33] VITALS: TEMP 98.2
[2024-02-29 04:36] VITALS: BP 105/64; PULSE 83
[2024-02-29 14:07] LABS: BODY FLUID ALBUMIN 1.1 g/dL (Not Estab.)
[2024-03-01 08:08] LABS: CARCINOEMBRYONIC ANTIGEN 2.8 ng/mL (0.0-4.7)
== END 2024-02-29 05:53 | disposition short-term general hospital (02) | DRG 187 ==
LOC: JER 03:02 → JERBED 12:22 → J6S 14:49
PROVIDERS: ADMIT Internal Medicine; ATTEND Student in an Organized Health Care Education/Training Program
PROC: 0W9930Z Drainage of Right Pleural Cavity with Drainage Device, Percutaneous Approach (ICD-10-PCS; principal; 2024-02-28)
DX: J90 Pleural effusion, not elsewhere classified (principal); J95.811 Postprocedural pneumothorax; N17.9 Acute kidney failure, unspecified; R18.8 Other ascites; I10 Essential (primary) hypertension; E78.5 Hyperlipidemia, unspecified; I25.10 Atherosclerotic heart disease of native coronary artery without angina pectoris; K21.9 Gastro-esophageal reflux disease without esophagitis; K75.81 Nonalcoholic steatohepatitis (NASH); I27.20 Pulmonary hypertension, unspecified; K74.60 Unspecified cirrhosis of liver; D64.9 Anemia, unspecified; E80.6 Other disorders of bilirubin metabolism; D72.10 Eosinophilia, unspecified; K42.9 Umbilical hernia without obstruction or gangrene
CPT/HCPCS: 0241U-QW; 32557; 36415; 71045-TC-FY; 71046-TC-FY; 71275-TC; 74177-TC; 80048; 80053; 81003; 82042; 82105; 82150; 82248; 82378; 82465; 82945; 83615; 83880; 83986; 84157; 84478; 84484; 85025; 85027; 85379; 86301; 87070; 87075; 87086; 87102; 87116; 87205; 87206; 87210; 88108; 88305-TC; 93005; 93010; 99285-25; J1644; P9047